=== PATIENT | female | born 1945 | race Caucasian/White ===

== ENCOUNTER 2016-06-08 10:47 | Outpatient (CLI) ==
[2016-06-08 12:23] LABS: ALBUMIN 3.9 g/dL (3.4-5.0); ALBUMIN/GLOBULIN RATIO 1.3; ANION GAP 10.4; BILIRUBIN,TOTAL 0.51 mg/dL (0.00-1.20); BUN/CREATININE RATIO 27.02; CALCIUM 9.5 mg/dL (8.2-10.2); CHOL/HDL RATIO 2.5 (4.5-5.5); CREATININE 0.74 mg/dL (0.60-1.30); POTASSIUM 4.4 mmol/L (3.5-5.10); TOTAL PROTEIN 6.9 g/dL (5.8-8.1)
== END 2016-06-08 10:48 | disposition home or self-care (01) ==
LOC: LAB 10:47
PROVIDERS: ATTEND Internal Medicine Endocrinology, Diabetes & Metabolism
DX: E10.9 Type 1 diabetes mellitus without complications (principal); E04.2 Nontoxic multinodular goiter
CPT/HCPCS: 36415; 80053; 80061; 83036; 84439; 84443; 84481

== ENCOUNTER 2016-09-19 08:14 | Outpatient (CLI) ==
[2016-09-19 09:08] LABS: ALBUMIN 3.7 g/dL (3.4-5.0); ALBUMIN/GLOBULIN RATIO 1.19; ANION GAP 10.7; BILIRUBIN,TOTAL 0.55 mg/dL (0.00-1.20); BUN/CREATININE RATIO 30.76; CALCIUM 9.3 mg/dL (8.2-10.2); CHOL/HDL RATIO 2.2 (4.5-5.5); CREATININE 0.78 mg/dL (0.60-1.30); POTASSIUM 4.7 mmol/L (3.5-5.10); TOTAL PROTEIN 6.8 g/dL (5.8-8.1)
== END 2016-09-19 08:15 | disposition home or self-care (01) ==
LOC: LAB 08:14
PROVIDERS: ATTEND Internal Medicine Endocrinology, Diabetes & Metabolism
DX: E10.9 Type 1 diabetes mellitus without complications (principal)
CPT/HCPCS: 36415; 80053; 80061; 83036

== ENCOUNTER 2016-09-26 15:15 | Outpatient (CLI) | END 2016-09-26 15:16 | disposition home or self-care (01) | LOC: LAB 15:15 | PROVIDERS: ATTEND Internal Medicine Endocrinology, Diabetes & Metabolism | DX: E03.9 Hypothyroidism, unspecified (principal) | CPT/HCPCS: 36415; 84439; 84443; 86376 ==

== ENCOUNTER 2016-11-14 13:43 | Outpatient (CLI) | payer OTHER | END 2016-11-14 13:44 | disposition home or self-care (01) | LOC: LAB 13:43 | PROVIDERS: ATTEND Internal Medicine Endocrinology, Diabetes & Metabolism | DX: E03.9 Hypothyroidism, unspecified (principal) | CPT/HCPCS: 36415; 84439; 84443; 86376 ==

== ENCOUNTER 2017-01-22 10:31 | Outpatient (CLI) | payer OTHER ==
[2017-01-22 11:05] LABS: BASOPHILS # (AUTO) 0.1 K/uL (0-0.2); BASOPHILS % (AUTO) 0.9 % (0.0-3.0); EOSINOPHILS # (AUTO) 0.1 K/ul (0.0-0.7); EOSINOPHILS % (AUTO) 2.4 % (0.0-7.0); HEMATOCRIT 35.1 % (37.0-47.0); HEMOGLOBIN 11.7 g/dl (12.0-16.0); IMMATURE GRANULOCYTE % (AUTO) 0.2 % (0.0-5.0); LYMPHOCYTES % (AUTO) 34.2 (10.0-50.0); MEAN CORPUSCULAR HEMOGLOBIN 30.5 pg (27.0-31.0); MEAN CORPUSCULAR HGB CONC 33.3 (31.8-35.4); MEAN CORPUSCULAR VOLUME 91.4 fl (81.0-99.0); MONOCYTES # (AUTO) 0.6 K/uL (0.4-2.0); MONOCYTES % (AUTO) 10.1 (0-10); NEUTROPHILS % (AUTO) 52.2; PLATELET COUNT 163 10^3/uL (140-440); RED BLOOD COUNT 3.84 10^6/ul (4.20-5.40); WHITE BLOOD COUNT 5.76 K/ul (4.6-10.2)
[2017-01-22 11:12] LABS: ALBUMIN 3.8 g/dL (3.4-5.0); ALBUMIN/GLOBULIN RATIO 1.27; ANION GAP 12.3; BILIRUBIN,TOTAL 0.58 mg/dL (0.00-1.20); BUN/CREATININE RATIO 25.92; CALCIUM 9.6 mg/dL (8.2-10.2); CHOL/HDL RATIO 2.2 (4.5-5.5); CREATININE 0.81 mg/dL (0.60-1.30); POTASSIUM 4.3 mmol/L (3.5-5.10); TOTAL PROTEIN 6.8 g/dL (5.8-8.1)
[2017-01-23 09:39] LABS: URINE MALB/CR RATIO 4.5 mg/g creat (0.0-30.0)
== END 2017-01-22 10:32 | disposition home or self-care (01) ==
LOC: LAB 10:31
PROVIDERS: ATTEND Internal Medicine Endocrinology, Diabetes & Metabolism
DX: E78.5 Hyperlipidemia, unspecified (principal); E10.9 Type 1 diabetes mellitus without complications
CPT/HCPCS: 36415; 80053; 80061; 82043; 83036; 85025

== ENCOUNTER 2017-02-09 15:16 | Outpatient (CLI) | END 2017-02-09 15:17 | disposition home or self-care (01) | LOC: LAB 15:16 | PROVIDERS: ATTEND Physician Assistant Medical | DX: E03.9 Hypothyroidism, unspecified (principal); E05.90 Thyrotoxicosis, unspecified without thyrotoxic crisis or storm | CPT/HCPCS: 36415; 84439; 84443; 84481 ==

== ENCOUNTER 2017-04-24 14:26 | Outpatient (CLI) ==
--- NOTE | 2017-04-29 08:31 | MAMMO ---
EXAM: Bilateral digital screening mammogram (2-D and 3-D) History: Screening Comparison: Bilateral mammogram 04/08/2015 Findings: MLO and CC views of bilateral breasts demonstrate scattered fibroglandular breast parenchy ma. CAD was reviewed by the radiologist. Tomosynthesis was performed. Stable benign bilateral vasc ular calcifications. There are no dominant masses, no suspicious microcalcifications and no architec tural distortions Impression: Benign stable mammogram. Recommend followup routine screening mammography in 1 year. BIRADS 2
== END 2017-04-24 14:27 | disposition home or self-care (01) ==
LOC: RAD 14:26
PROVIDERS: ATTEND Internal Medicine
DX: Z12.31 Encounter for screening mammogram for malignant neoplasm of breast (principal)
CPT/HCPCS: 77067

== ENCOUNTER 2017-07-30 08:25 | Outpatient (CLI) | payer OTHER ==
--- NOTE | 2017-07-30 09:43 | DEXA ---
EXAM: Bone density HISTORY: Family history of osteoporosis with prior fracture, arthritis and diabetes. Patient taking calcium supplement and vitamin D. COMPARISON: 04/01/2008 TECHNIQUE: Digital images of the thoracolumbar spine and hips were provided and calculation of bone density was obtained. FINDINGS: Digital images demonstrate no compression deformities of the thoracolumbar spine. DEXA scan of the lumbar spine is of good quality. The total BMD equals 1.019 grams per square centimeter. (Prior 1.085) T-score is - 1.3 and Z-score of 0.1. DEXA of the hips was performed and of good quality. Total bone marrow density of 0.751 grams per square centimeter. T score is - 2.0 and Z-score of - 0.7 IMPRESSION: Bone density of the hip and lumbar spine demonstrate osteopenia of the lumbar spine and hips by WHO criteria. Lumbar spine bone density has decreased in comparison to prior. FRAX calculation tool demonstrates 10-year major osteoporotic fracture probability of 20.2% and hip f racture risk of 4.3% T score greater than -1 is normal T score -1 to -2.5 is osteopenia T score less than - 2.5 is osteoporosis
== END 2017-07-30 08:26 | disposition home or self-care (01) ==
LOC: RAD 08:25
PROVIDERS: ATTEND Orthopaedic Surgery
DX: M81.0 Age-related osteoporosis without current pathological fracture (principal); E10.9 Type 1 diabetes mellitus without complications; E78.5 Hyperlipidemia, unspecified; E03.9 Hypothyroidism, unspecified; E05.90 Thyrotoxicosis, unspecified without thyrotoxic crisis or storm
CPT/HCPCS: 36415; 80053; 80061; 82043; 83036; 84439; 84443; 85025

== ENCOUNTER 2017-09-30 15:40 | Outpatient (CLI) | END 2017-09-30 15:41 | disposition home or self-care (01) | LOC: LAB 15:40 | PROVIDERS: ATTEND Orthopaedic Surgery | DX: M81.0 Age-related osteoporosis without current pathological fracture (principal); R53.82 Chronic fatigue, unspecified | CPT/HCPCS: 36415; 80053; 82306; 83970; 84100; 84443; 85025 ==

== ENCOUNTER 2017-12-13 11:43 | Emergency (ER) | payer OTHER ==
[2017-12-13 11:52] VITALS: BP 136/61; TEMP 97.2; BMI 23.9
--- NOTE | 2017-12-13 12:02 | ED.PDOC ---
General ED Provider: Dr. GALINA AMCIEL MD Chief Complaint: Fall Stated Complaint: my left wristr hurts after afall last week Time Seen by Physician: 12:00 Mode of Arrival: Walk-In Information Source: Patient Exam Limitations: No limitations Primary Care Provider: RADHA LEHMAN Nursing and Triage Documentation Reviewed and Agree: Yes Does patient meet sepsis criteria?: No If yes, has appropriate treatment been initiated?: Yes System Inflammatory Response Syndrome: Not Applicable Sepsis Protocol: For patient's 13 years and over: Temp is 96.8 and below OR 101 and greater Pulse >90 BPM Resp >20/minute Acutely Altered Mental Status Are patient's symptoms suggestive of a new infection, such as: -Pneumonia -Skin, Soft Tissue -Endocarditis -UTI -Bone, Joint Infection -Implantable Device -Acute Abdominal Infection -Wound Infection -Meningitis -Blood Stream Catheter Infection -Unknown Musculoskeletal Complaint Exam - Hand/Wrist Complaint/Exam Mechanism of Injury: Reports: Trauma (fall one week ago) Symptoms Are: Worse Onset of Pain: Reports: Post accident Initial Severity: Mild Current Severity: Moderate Location: Reports: Discrete Character: Reports: Aching Alleviating: Reports: Rest, Elevation Aggravating: Reports: Movement Associated Signs and Symptoms: Reports: Bruising Dominant Hand: Right Related Surgical History: Reports: None Hand/Wrist Findings: Present: Ecchymosis Tenderness: Present: Radius Differential Diagnoses: Contusion, Sprain Review of Systems - Review Of Systems Constitutional: Reports: No symptoms Eyes: Reports: No symptoms Ears, Nose, Mouth, Throat: Reports: No symptoms Respiratory: Reports: No symptoms Cardiac: Reports: No symptoms GI: Reports: No symptoms : Reports: No symptoms Musculoskeletal: Reports: Joint swelling (Left wrisat pain) Skin: Reports: No symptoms Neurological: Reports: No symptoms Endocrine: Reports: No symptoms Hematologic/Lymphatic: Reports: No symptoms All Other Systems: Reviewed and Negative Past Medical History - Past Medical History Previously Healthy: Yes Endocrine: Reports: None Cardiovascular: Reports: None Respiratory: Reports: None Hematological: Reports: None Gastrointestinal: Reports: None Genitourinary: Reports: None Neuro/Psych: Reports: None Musculoskeletal: Reports: None Cancer: Reports: None Last Menstrual Period: 20 years ago - Surgical History General Surgical History: Reports: None - Family History Family History: Reports: None - Social History Smoking Status: Never smoker Hx Substance Use: No Alcohol Screening: None - Immunizations Tetanus Shot up to Date: Yes Physical Exam - Physical Exam Appearance: Well-appearing Pain Distress: Mild Eyes: [place], EOMI, Conjunctiva clear ENT: Ears normal, Nose normal, Oropharynx normal Respiratory: Airway patent, Breath sounds clear, Breath sounds equal, Respirations nonlabored Cardiovascular: RRR, Pulses normal, No rub, No murmur Critical Care Note - Critical Care Note Total Time (mins): 0 Course - Course Orders, Labs, Meds: Orders Category Date Time Status WRIST, LEFT 3 VIEWS Stat RADS 12/13/17 12:04 Completed Vital Signs: Temp Pulse Resp BP Pulse Ox 12/13/17 11:43 97.2 F L 62 18 136/61 98 Departure - Departure Time of Disposition: 12:50 Disposition: HOME SELF-CARE Discharge Problem: Fracture of styloid process of ulna Condition: Good Pt referred to PMD for follow-up: Yes IPMP verified?: No Additional Instructions: follow up with Orthopedics Home Medications: Ambulatory Orders Levothyroxine Sodium 12.5 mcg PO DAILY 12/13/17 Lisinopril [Zestril] 5 mg PO DAILY 12/13/17 Metoprolol Tartrate 25 mg DAILY 12/13/17 Simvastatin 40 mg PO DAILY 12/13/17 Disposition Discussed With: Patient (she will go to Ortho)
--- NOTE | 2017-12-13 12:34 | DI ---
EXAM: Radiographs, left wrist HISTORY: Initial presentation for left wrist trauma. COMPARISON: None available. TECHNIQUE: Three views. FINDINGS: Bone mineralization is decreased. There is a small displaced ulnar styloid fracture. Mar gins are somewhat corticated. No other fractures are seen. Joint spaces are maintained. No localiz ed soft tissue abnormality is detected. IMPRESSION: Mildly displaced ulnar styloid fracture which is age indeterminate.
== END 2017-12-13 13:02 | disposition home or self-care (01) ==
LOC: ED 11:43
DX: S52.612A Displaced fracture of left ulna styloid process, initial encounter for closed fracture (principal); W19.XXXA Unspecified fall, initial encounter
CPT/HCPCS: 99283

== ENCOUNTER 2018-02-19 10:09 | Outpatient (CLI) | END 2018-02-19 10:10 | disposition home or self-care (01) | LOC: LAB 10:09 | PROVIDERS: ATTEND Internal Medicine Endocrinology, Diabetes & Metabolism | DX: M81.0 Age-related osteoporosis without current pathological fracture (principal); E10.65 Type 1 diabetes mellitus with hyperglycemia; R53.82 Chronic fatigue, unspecified; E03.9 Hypothyroidism, unspecified | CPT/HCPCS: 36415; 80053; 82306; 83036; 83970; 84443 ==

== ENCOUNTER 2018-02-26 10:45 | Outpatient (CLI) ==
[2018-02-26 13:27] VITALS: BP 134/68; TEMP 97.5
[2018-02-26] MEDS ORDERED: PROLIA SUBCUT STA (13:38)
== END 2018-02-26 10:46 | disposition home or self-care (01) ==
LOC: OPMED 10:45
PROVIDERS: ATTEND Orthopaedic Surgery
DX: M81.0 Age-related osteoporosis without current pathological fracture (principal)
CPT/HCPCS: 96372

== ENCOUNTER 2018-08-26 07:26 | Outpatient (CLI) | END 2018-08-26 07:27 | disposition home or self-care (01) | LOC: LAB 07:26 | PROVIDERS: ATTEND Orthopaedic Surgery | DX: E10.65 Type 1 diabetes mellitus with hyperglycemia (principal); M81.0 Age-related osteoporosis without current pathological fracture; R53.82 Chronic fatigue, unspecified | CPT/HCPCS: 36415; 80053; 80061; 82043; 82306; 83036; 83970 ==

== ENCOUNTER 2018-09-01 07:58 | Outpatient (CLI) ==
[2018-09-01 08:15] VITALS: BP 136/73; TEMP 98
[2018-09-01] MEDS ORDERED: PROLIA SUBCUT STA (08:19)
== END 2018-09-01 07:59 | disposition home or self-care (01) ==
LOC: OPMED 07:58
PROVIDERS: ATTEND Orthopaedic Surgery
DX: M81.0 Age-related osteoporosis without current pathological fracture (principal)
CPT/HCPCS: 96372